=== PATIENT | female | born 1980 | race Asian ===

== ENCOUNTER 2017-06-03 22:33 | Emergency (ER) | payer SELFPAY ==
[~2017-06-03] VITALS: Ht 162.6 cm; Wt 50.0 kg
[2017-06-03 22:59] VITALS: BP 131/85
[2017-06-03 23:19] LABS: DAU SCREEN DISCLAIMER
[2017-06-03] MEDS ORDERED: ESCI10TA10 PO (23:30)
[2017-06-03 23:45] LABS: ASPARTATE AMINO TRANSFERASE 17 U/L (15-37); BLOOD UREA NITROGEN 12 mg/dL (7-18)
[2017-06-03 23:46] LABS: HEMATOCRIT 38.9 % (34.6-47.8); HEMOGLOBIN 12.9 g/dL (11.7-16.4); WHITE BLOOD COUNT 10.2 x10^3/uL (3.4-10)
[2017-06-03 23:51] LABS: ACETAMINOPHEN < 2 mcg/mL (10-30)
== END 2017-06-04 02:39 | disposition home or self-care (01) ==
LOC: ED 06-04 02:33
DX: T43.221A Poisoning by selective serotonin reuptake inhibitors, accidental (unintentional), initial encounter (principal); T39.311A Poisoning by propionic acid derivatives, accidental (unintentional), initial encounter; Y92.89 Other specified places as the place of occurrence of the external cause; F32.0 Major depressive disorder, single episode, mild; F60.3 Borderline personality disorder
CPT/HCPCS: 36415; 80053; 80307; 80329; 84703; 85025; 99284; G0479; G0480